=== PATIENT | male | born 1950 | race Caucasian/White ===

== ENCOUNTER 2017-07-11 11:15 | Emergency (ER) | payer OTHER ==
--- NOTE | 2017-07-11 11:47 | ED.PDOC ---
History of Present Illness - General Chief Complaint: Chest Pain/TN Stated Complaint: CHEST DISCOMFORT. Time Seen by Provider: 07/11/17 11:35 Source: patient Exam Limitations: no limitations Additional Information: PT C/O DISCOMFORT PRIMARILY IN LL ANT THORAX. ASSOCIATED SOB, PT CONCERNED B/C HE HAS HX OF LYMPHOMA. - History of Present Illness Timing/Duration: other - ONSET LAST PM Severity: mild Improving Factors: nothing Worsening Factors: nothing Associated Symptoms: shortness of breath Allergies/Adverse Reactions: Allergies Lisinopril Allergy (Verified 07/11/17 11:53) Tramadol Allergy (Verified 11/24/13 13:32) Home Medications: Ambulatory Orders Albuterol Sulfate [Proventil] 2 mg PO 11/24/13 Atorvastatin Calcium [Lipitor] 80 mg PO 11/24/13 Budesonide-Formoterol Fumarate [Symbicort] 1 aer IN 11/24/13 Chlorhexidine Gluc 4% 15Ml [Hibiclens] 4 % EX 11/24/13 Cilostazol 100 mg PO 11/24/13 Cyclobenzaprine HCl 10 mg PO 11/24/13 Nphpeufpadeedrh-Rwmiydjey-Vwjs 1 ml PO 11/24/13 Docusate Sodium 100 mg PO 11/24/13 Gabapentin 100 mg PO 11/24/13 HYDROcodone 10MG/APAP 325MG [[place] 10/325] 1 tab PO 11/24/13 Insulin Detemir [Levemir Flexpen] 100 unit SC 11/24/13 Insulin Lispro (Human) [Humalog] 100 unit SC 11/24/13 Losartan Potassium 100 mg PO 11/24/13 Metoprolol Tartrate 50 mg PO 11/24/13 [place] 1% Opth Vaishnavi [(None)] 15 ml OPHTH 11/24/13 Prednisone 50 mg PO 11/24/13 Tiotropium [place] Monohydrate [Spiriva Handihaler] 1 puff IN 11/24/13 amLODIPine BESYLATE [Norvasc] 5 mg PO 11/24/13 Indomethacin 50 mg PO TID PRN #14 cap 07/11/17 Review of Systems - Review of Systems Constitutional: Denies: chills, fever EENTM: States: no symptoms reported Respiratory: States: short of breath. Denies: cough, wheezing Cardiology: States: chest pain. Denies: palpitations, syncope Gastrointestinal/Abdominal: Denies: abdominal pain, nausea, vomiting Genitourinary: States: no symptoms reported Musculoskeletal: States: no symptoms reported Skin: States: no symptoms reported Neurological: States: no symptoms reported Endocrine: States: no symptoms reported Past Medical History (General) - Patient Medical History Hx of COPD: Yes Hx Cardiac Disorders: Yes Hx Hypertension: Yes Hx Diabetes: Yes Hx Cancer: Yes - lung - Social History Hx Tobacco Use: No Hx Alcohol Use: Yes - SOCIAL Family Medical History - Family History Mother Family History: Unknown Physical Exam - Physical Exam General Appearance: Alert, Anxious, No apparent distress Eye Exam: bilateral normal Ears, Nose, Throat: hearing grossly normal, normal ENT inspection Neck: non-tender, full range of motion, supple Respiratory: lungs clear, normal breath sounds Cardiovascular/Chest: regular rate, rhythm, no murmur Gastrointestinal/Abdominal: non tender, soft, no organomegaly Back Exam: normal inspection, no CVA tenderness Extremity: normal range of motion, non-tender Neurologic: alert, normal mood/affect Skin Exam: normal color, warm/dry Lymphatic: no adenopathy Progress - Progress Progress: 07/11/17 13:45 SLEEPING, NAD, - EKG/XRAY/CT XRAY: chest - JENNI CT Ordered: Yes - CHEST/ABD/PELVIS, ATELECTASIS, NO OTHER ACUTE ABN Departure - Departure Clinical Impression: Chest wall pain ICD-10 Supporting Text: HX HODGKIN'S LYMPHOMA Time of Disposition: 13:47 Disposition: Discharge to Home or Self Care Condition: Good Departure Forms: ED Discharge - Pt. Copy, Patient Portal Self Enrollment Instructions: DI for Chest Pain, DI for Atypical Chest Pain Prescriptions: Indomethacin 50 mg PO TID PRN #14 cap PRN Reason: Pain Home Medications: Ambulatory Orders Albuterol Sulfate [Proventil] 2 mg PO 11/24/13 Atorvastatin Calcium [Lipitor] 80 mg PO 11/24/13 Budesonide-Formoterol Fumarate [Symbicort] 1 aer IN 11/24/13 Chlorhexidine Gluc 4% 15Ml [Hibiclens] 4 % EX 11/24/13 Cilostazol 100 mg PO 11/24/13 Cyclobenzaprine HCl 10 mg PO 11/24/13 Vxdhcvwfergjclm-Jdgfwwdje-Upgs 1 ml PO 11/24/13 Docusate Sodium 100 mg PO 11/24/13 Gabapentin 100 mg PO 11/24/13 HYDROcodone 10MG/APAP 325MG [[place] 10/325] 1 tab PO 11/24/13 Insulin Detemir [Levemir Flexpen] 100 unit SC 11/24/13 Insulin Lispro (Human) [Humalog] 100 unit SC 11/24/13 Losartan Potassium 100 mg PO 11/24/13 Metoprolol Tartrate 50 mg PO 11/24/13 [place] 1% Opth Vaishnavi [(None)] 15 ml OPHTH 11/24/13 Prednisone 50 mg PO 11/24/13 Tiotropium [place] Monohydrate [Spiriva Handihaler] 1 puff IN 11/24/13 amLODIPine BESYLATE [Norvasc] 5 mg PO 11/24/13 Indomethacin 50 mg PO TID PRN #14 cap 07/11/17
[2017-07-11 11:54] VITALS: TEMP 98.4
--- NOTE | 2017-07-11 12:50 | RAD ---
EXAM DESCRIPTION: Chest,1 View CLINICAL HISTORY: Shortness of breath FINDINGS/ IMPRESSION: Heart size top limits normal. Atherosclerotic aorta. Mild increased density in the medial right lung base, subsegmental atelectasis versus early infiltrate No pulmonary edema. No dense alveolar consolidation or effusion Electronically signed by: Tuan Block MD 07/11/2017 12:48 PM CDT
--- NOTE | 2017-07-11 13:00 | CT ---
EXAM DESCRIPTION: Abdomen/Pelvis w/Contrast (accession [id number]), Chest w/Contrast (accession [id number]) CLINICAL HISTORY: SOB, HX OF LYMPHOMA COMPARISON: No comparison imaging is available at this time dictation. TECHNIQUE: Post contrast multidetector CT imaging of the chest, abdomen pelvis was performed. Multiplanar reconstructions were generated. This exam was performed according to our departmental dose-optimization program which includes automated exposure control, adjustment of the mA and/or kV according to patient size and/or use of iterative reconstruction technique. FINDINGS: CT chest: Lower neck soft tissues are unremarkable in appearance. No axillary lymphadenopathy is present by imaging criteria. Trachea and proximal bronchi are patent. No endobronchial lesions are present. Airspace opacity with volume loss seen within the basal segments right lower lobe consistent with atelectasis. Occasional intrapulmonary lymph nodes are present. No concerning pulmonary nodules. No acute volume occupying airspace disease/consolidation. The heart size is normal. Moderate burden coronary vascular calcification. Moderate thoracic aortic arch calcifications. Aberrant right subclavian artery is a normal variant commonly asymptomatic. No enlarged mediastinal hilar lymph nodes are present by imaging criteria. No aggressive lytic or blastic osseous lesions demonstrated within the thorax. No gross pulmonary artery filling defects. CT abdomen pelvis: No focal liver lesions. No intrahepatic ductal dilatation. Usual cholecystectomy changes. No pancreatic mass or inflammation is present. Spleen is normal in size and appearance. Bilateral adrenal glands are normal in appearance. 2 calcifications noted within the right kidney measuring 2 and 3 mm respectively. No obstructive uropathy. No aggressive renal lesions. Pelvic organs are unremarkable. No gastrointestinal obstruction or inflammation is demonstrated. No free intraperitoneal fluid or gas. No lymphadenopathy by imaging criteria. Advanced degenerative spondylosis lumbar spine. Early advanced osteoarthritis left hip. No aggressive lytic or blastic osseous lesions. Moderate to severe atherosclerotic burden abdominal aorta and branch vessels. IMPRESSION: No evidence for recurrent disease within the chest, abdomen and pelvis. No convincing CT evidence to explain the patient's presenting symptoms of acute shortness of breath. Subsegmental atelectasis is however noted within the right lower lung likely incidental. Advanced atherosclerotic disease throughout the chest, abdomen and pelvis. Normal cholecystectomy findings. Extensive degenerative changes of the lumbar spine and pelvis. Nonobstructive Central right-sided nephrolithiasis. Electronically signed by: Angel Luis Waterman MD 07/11/2017 12:59 PM CDT
[2017-07-11 13:59] VITALS: BP 130/72; O2SAT 76
== END 2017-07-11 13:59 | disposition home or self-care (01) ==
LOC: ER 11:15
DX: R07.89 Other chest pain (principal); J44.9 Chronic obstructive pulmonary disease, unspecified; I10 Essential (primary) hypertension; E11.9 Type 2 diabetes mellitus without complications; Z85.118 Personal history of other malignant neoplasm of bronchus and lung; Z85.72 Personal history of non-Hodgkin lymphomas